=== PATIENT | male | born 1980 | race African-American/Black ===

== ENCOUNTER 2022-06-27 11:02 | Day surgery (SDC) | payer OTHER ==
[~2022-06-27] VITALS: Ht 170.2 cm; Wt 92.9 kg
[~2022-06-27 11:02] MED LIST: NS 1,000 ML IV ONE
[2022-06-27] MEDS ORDERED: OMEP40CA4 PO (11:19)
[2022-06-27] MEDS ORDERED: NAPR-885 PO (11:20)
[2022-06-27] MEDS ORDERED: propofoL 200 MG/20 ML VIAL As Ordered ONE (12:10)
[2022-06-27] MEDS ORDERED: LIDOCAINE 2% 100MG/5ML SDV (FOR ANES.) As Ordered ONE (12:10)
[2022-06-27] MEDS ORDERED: fentaNYL 100 MCG/2 ML INJECTION As Ordered ONE (12:57)
[2022-06-27 13:26] VITALS: BP 125/71
== END 2022-06-27 13:47 | disposition home or self-care (01) ==
LOC: M OPP 11:02
PROVIDERS: ATTEND Internal Medicine Gastroenterology
DX: K31.89 Other diseases of stomach and duodenum (principal); K30 Functional dyspepsia
CPT/HCPCS: 43239; 88305; J3010

== ENCOUNTER → 2022-07-27 | Outpatient (CLI) | payer OTHER ==
[~2022-07-27] MED LIST changes: +NAPR-885 PO; -NS 1,000 ML IV ONE; +OMEP40CA4 PO
== END ==
LOC: M LAB 15:41
PROVIDERS: ATTEND Internal Medicine Gastroenterology
DX: Z79.899 Other long term (current) drug therapy (principal); B96.81 Helicobacter pylori [H. pylori] as the cause of diseases classified elsewhere; Z53.8 Procedure and treatment not carried out for other reasons

== ENCOUNTER → 2022-08-01 | Outpatient (REF) | payer OTHER | LOC: M LAB REF 15:30 | PROVIDERS: ATTEND Internal Medicine Gastroenterology | DX: R12 Heartburn (principal); B96.81 Helicobacter pylori [H. pylori] as the cause of diseases classified elsewhere ==